=== PATIENT | female | born 1980 | race Caucasian/White ===

== ENCOUNTER 2016-10-11 16:47 | Emergency (ER) | payer OTHER ==
[~2016-10-11] VITALS: Ht 162.6 cm; Wt 113.4 kg
[2016-10-11 16:55] VITALS: BP 139/84; PULSE 96; RESP 14; TEMP 97.9; O2SAT 97
[2016-10-11 18:02] VITALS: BP 132/72; PULSE 76; RESP 16; TEMP 98.1; O2SAT 98
== END 2016-10-11 18:02 | disposition home or self-care (01) ==
LOC: SED 16:47
DX: L25.9 Unspecified contact dermatitis, unspecified cause (principal); L03.114 Cellulitis of left upper limb; Z88.5 Allergy status to narcotic agent; Z88.1 Allergy status to other antibiotic agents
CPT/HCPCS: 99283

== ENCOUNTER 2017-03-26 21:14 | Emergency (ER) | payer OTHER ==
[~2017-03-26] VITALS: Ht 162.6 cm; Wt 113.4 kg
[2017-03-26 21:19] VITALS: BP_SYST 143
[2017-03-26] MEDS ORDERED: LIDOCAINE/EPI 1% 1:100000 20 ML VIAL INJ ONE (21:45)
[2017-03-26 22:15] VITALS: BP_SYST 143
== END 2017-03-26 22:15 | disposition home or self-care (01) ==
LOC: SED 21:14
DX: S00.252A Superficial foreign body of left eyelid and periocular area, initial encounter (principal); S00.251A Superficial foreign body of right eyelid and periocular area, initial encounter; L08.9 Local infection of the skin and subcutaneous tissue, unspecified; Z88.5 Allergy status to narcotic agent; Z88.1 Allergy status to other antibiotic agents; X58.XXXA Exposure to other specified factors, initial encounter; Y93.89 Activity, other specified; Y92.89 Other specified places as the place of occurrence of the external cause; Y99.8 Other external cause status
CPT/HCPCS: 99284

== ENCOUNTER 2017-08-31 02:01 | Emergency (ER) | payer MEDICAID, OTHER ==
[~2017-08-31] VITALS: Ht 162.6 cm; Wt 115.7 kg
[2017-08-31 02:03] VITALS: BP_SYST 127
[2017-08-31] MEDS ORDERED: NACL 0.9% 1,000 ML IV ONE (02:26)
[2017-08-31] MEDS ORDERED: KETOROLAC TROMETHAMINE 30 MG VIAL IVP ONE (02:30)
[2017-08-31] MEDS ORDERED: ONDANSETRON HCL 4 MG/2 ML VIAL IVP ONE (02:30)
[2017-08-31 02:45] LABS: BILIRUBIN,URINE NEGATIVE (NEGATIVE); BLOOD, URINE NEGATIVE (NEGATIVE); CLARITY/URINE CLEAR (CLEAR); COLOR,URINE YELLOW (YELLOW); GLUCOSE,URINE 3+ (NEGATIVE); KETONES,URINE NEGATIVE (NEGATIVE); LEUKOCYTE ESTERASE ,URINE NEGATIVE (NEGATIVE); NITRITE, URINE NEGATIVE (NEGATIVE); PH,URINE 5.5 (5.0-8.0); PROTEIN URINE NEGATIVE (NEGATIVE); UROBILINOGEN,URINE 0.2 (0.2-1.0)
[2017-08-31 02:46] LABS: HEMATOCRIT 45.4 % (36-48); HEMOGLOBIN 14.6 g/dL (12.0-16.0); MEAN CORPUSCULAR HEMOGLOBIN 28 pg (27-31); MEAN CORPUSCULAR HGB CONC 32 % (32-36); MEAN CORPUSCULAR VOLUME 86 fL (79.0-98.0); PLATELET COUNT (AUTO) 607 K/uL (130-430); RED BLOOD CELL COUNT(AUTO) 5.27 MIL/uL (4.2-6.2); RED CELL DISTRIBUTION WIDTH 12.8 % (9.0-15.0); WHITE BLOOD COUNT (AUTO) 14.2 K/uL (4.8-10.8)
[2017-08-31 02:57] LABS: CALCIUM 9.7 mg/dL (8.4-11.0); CREATININE 0.74 mg/dL (0.55-1.30); POTASSIUM 3.9 mmol/L (3.5-5.1)
[2017-08-31 02:58] LABS: BACTERIA,URINE RARE /HPF (None Seen); RBC,URINE 0-3 /HPF (0-3); WBC,URINE 0-3 /HPF (0-3)
[2017-08-31 03:03] LABS: ALBUMIN 3.8 g/dL (3.4-4.8); TOTAL BILIRUBIN 0.1 mg/dL (0.0-1.0)
[2017-08-31 03:21] LABS: BASOPHILS % (MANUAL) 0 % (0-2); EOSINOPHILS % (MANUAL) 2 % (0-7); LYMPHOCYTES % (MANUAL) 25 % (20-46); MONOCYTES % (MANUAL) 6 % (0-11)
[2017-08-31] MEDS ORDERED: PROCHLORPERAZINE EDISYLATE 10 MG/2 ML VIAL IVP ONE ×2 (03:30→05:00)
[2017-08-31] MEDS ORDERED: fentaNYL CITRATE/PF 100 MCG/2 ML AMP IVP ONE (03:45)
[2017-08-31] MEDS ORDERED: SERT-131 PO (05:05)
[2017-08-31] MEDS ORDERED: SIMV40TA2 PO (05:05)
[2017-08-31] MEDS ORDERED: NOR10 PO (05:05)
[2017-08-31] MEDS ORDERED: TRAZ-123 PO (05:05)
[2017-08-31] MEDS ORDERED: APIX5TAB PO (05:05)
[2017-08-31] MEDS ORDERED: METO25TA6 PO (05:05)
[2017-08-31] MEDS ORDERED: ASPI-1063 PO (05:05)
[2017-08-31] MEDS ORDERED: GLIP5TAB13 PO (05:05)
[2017-08-31] MEDS ORDERED: MONT10TA25 PO (05:05)
[2017-08-31] MEDS ORDERED: LOSA1TAB3 PO (05:05)
[2017-08-31] MEDS ORDERED: GABA800T PO (05:05)
[2017-08-31] MEDS ORDERED: BELLADONNA ALKALOIDS/PHENOBARB 5 ML UDC PO ONE (05:15)
[2017-08-31] MEDS ORDERED: MAG-AL HYDROX/SIMETH 30 ML UDC PO ONE (05:15)
[2017-08-31] MEDS ORDERED: LIDOCAINE VISCOUS 2%, 15 ML UDC MM ONE (05:15)
[2017-08-31] MEDS ORDERED: PANTOPRAZOLE SODIUM 40 MG/VIAL (PROTONIX) IVP ONE (05:15)
[2017-08-31 05:40] VITALS: BP_SYST 131
== END 2017-08-31 05:40 | disposition home or self-care (01) ==
LOC: SED 02:01
DX: R10.13 Epigastric pain (principal); R11.10 Vomiting, unspecified; Z88.5 Allergy status to narcotic agent; Z88.1 Allergy status to other antibiotic agents; Z79.899 Other long term (current) drug therapy; Z90.49 Acquired absence of other specified parts of digestive tract; Z85.07 Personal history of malignant neoplasm of pancreas
CPT/HCPCS: 36415; 71045; 74176; 80053; 81000; 83690; 85007; 85027; 96361; 96374; 96375; 96376; 99285; C9113; J0780; J1885; J2001; J2405; J3010

== ENCOUNTER 2018-05-06 23:43 | Emergency (ER) | payer OTHER ==
[~2018-05-06] VITALS: Ht 162.6 cm; Wt 108.9 kg
[~2018-05-06 23:43] MED LIST: APIX5TAB PO; ASPI-1153 PO; GABA800T PO; GLIP5TAB13 PO; LOSA1TAB3 PO; METO25TA6 PO; MONT10TA25 PO; NOR10 PO; SERT-131 PO; SIMV40TA2 PO; TRAZ-123 PO
[2018-05-07] VITALS: BP_SYST 127
--- NOTE | 2018-05-07 | NUR ---
PT AMBULATORY TO BED 8 FOR EVALUATION
--- NOTE | 2018-05-07 00:14 | NUR ---
Pt complains of pain to front tooth x 2 weeks. Pt states she had seen her dentist and was prescribed Amoxicillin x 7 days but pain is getting worse and infection is getting worse. Per patient, she took a [place] pill around 2129 with some relief. Pt denies fever, N/V. Noted bump to left front tooth. No other injuries/complaints per patient or noted.
--- NOTE | 2018-05-07 00:15 | NUR ---
ER Dr. Iqbal at bedside examining patient.
[2018-05-07] MEDS ORDERED: traMADol HCL HCL 50 MG TABLET (ULTRAM) PO ONE (00:30)
[2018-05-07] MEDS ORDERED: CLINDAMYCIN HCL 150 MG CAPSULE PO ONE (00:30)
--- NOTE | 2018-05-07 00:37 | NUR ---
Medication Clindamycin PO was given, pt tolerated well. No adverse reaction, will continue to monitor.
--- NOTE | 2018-05-07 00:41 | NUR ---
ER Dr. Iqbal at bedside explaining discharge summary to patient. Dr. Iqbal dispensed Tramadol 50mg PO to patient and instructed her to take medication when she gets home. Explained side effects. Pt verbalized understanding.
[2018-05-07 01:00] VITALS: BP_SYST 127
--- NOTE | 2018-05-07 01:00 | NUR ---
Patient given written and verbal discharge instructions and verbalizes understanding. ER MD discussed with patient the results and treatment provided. Patient in stable condition. ID arm band removed. Rx of Clindamycin given. Patient educated on pain management and to follow up with PMD. Pain Scale 3. Dr. Iqbal aware, medication sent home with patient. Opportunity for questions provided and answered. Medication side effect fact sheet provided.
== END 2018-05-07 01:00 | disposition home or self-care (01) ==
LOC: SED 23:43
DX: K04.7 Periapical abscess without sinus (principal); E11.9 Type 2 diabetes mellitus without complications; I10 Essential (primary) hypertension; Z88.1 Allergy status to other antibiotic agents; Z88.6 Allergy status to analgesic agent; Z79.82 Long term (current) use of aspirin; Z79.899 Other long term (current) drug therapy
CPT/HCPCS: 99283

== ENCOUNTER 2018-06-24 05:18 | Inpatient (IN) | payer OTHER ==
[~2018-06-24] VITALS: Ht 162.6 cm; Wt 113.2 kg
[2018-06-24] VITALS (7 sets, daily range): BP systolic 102–126
[~2018-06-24 05:18] MED LIST changes: -TRAZ-123 PO; +TRAZ-218 PO
[2018-06-24] MEDS ORDERED: NACL 0.9% 1,000 ML IV ONE ×2 (05:37→07:30)
[2018-06-24] MEDS ORDERED: fentaNYL CITRATE/PF 100 MCG/2 ML AMP IVP ONE (05:45)
[2018-06-24] MEDS ORDERED: ONDANSETRON HCL 4 MG/2 ML VIAL IVP ONE (05:45)
[2018-06-24 06:49] LABS: HEMATOCRIT 43.6 % (36-48); HEMOGLOBIN 14.4 g/dL (12.0-16.0); MEAN CORPUSCULAR HEMOGLOBIN 28 pg (27-31); MEAN CORPUSCULAR HGB CONC 33 % (32-36); MEAN CORPUSCULAR VOLUME 86 fL (79.0-98.0); PLATELET COUNT (AUTO) 657 K/uL (130-430); RED BLOOD CELL COUNT(AUTO) 5.09 MIL/uL (4.2-6.2); RED CELL DISTRIBUTION WIDTH 13.8 % (9.0-15.0); WHITE BLOOD COUNT (AUTO) 11.8 K/uL (4.8-10.8)
[2018-06-24 07:06] LABS: INR 0.9 (0.8-1.2); PROTHROMBIN TIME 9.5 SECS (9.5-12.5)
[2018-06-24 07:12] LABS: BASOPHILS % (MANUAL) 0 % (0-2); EOSINOPHILS % (MANUAL) 5 % (0-7); LYMPHOCYTES % (MANUAL) 33 % (20-46); MONOCYTES % (MANUAL) 4 % (0-11)
[2018-06-24] MEDS ORDERED: DIPHENHYDRAMINE INJ 50 MG/ML VIAL IVP ONE (07:15)
[2018-06-24 07:18] LABS: CALCIUM 9.4 mg/dL (8.4-11.0); CREATININE 1.01 mg/dL (0.55-1.30); POTASSIUM 4.2 mmol/L (3.5-5.1)
[2018-06-24 07:19] LABS: ALBUMIN 3.9 g/dL (3.4-4.8); TOTAL BILIRUBIN 0.4 mg/dL (0.0-1.0)
[2018-06-24] MEDS ORDERED: GLIP10TA11 PO (07:24)
[2018-06-24] MEDS ORDERED: GABA800T PO (07:24)
[2018-06-24] MEDS ORDERED: metroNIDAZOLE 500 mg/NS 100 ML IV ONE (07:30)
[2018-06-24] MEDS ORDERED: PIPERACILLIN/TAZO 3.375 GM in NS 50 ML IV ONE ×2 (07:30)
[2018-06-24] MEDS ORDERED: D5NS 1,000 ML IV SCH (07:30)
[2018-06-24] MEDS ORDERED: PIPERACILLIN/TAZOBACTAM 3.375 GM/VIAL (ZOSYN) IV ONE (07:36)
[2018-06-24] MEDS ORDERED: MORPHINE 4 MG/ML INJ. SYRINGE IVP ONE (08:30)
[2018-06-24] MEDS ORDERED: traZODone HCL 50 MG TABLET (DESYREL) PO PRN (09:00)
[2018-06-24] MEDS ORDERED: LOSARTAN/HYDROCHLOROTHIAZIDE TAB (HYZAAR 50-12.5 MG) PO SCH (09:00)
[2018-06-24] MEDS ORDERED: APIX5TAB PO (09:18)
[2018-06-24] MEDS ORDERED: FENO160 PO (09:18)
[2018-06-24] MEDS ORDERED: CANA300T PO (09:18)
[2018-06-24] MEDS: LACTOBACILLUS RHAMNOSUS GG 1 CAP CAPSULE PO SCH (09:28)
[2018-06-24] MEDS ORDERED: INSULIN ASPART 100 UNITS/ML, 10 ML VIAL (NovoLOG) SUBCUT PRN (09:30)
[2018-06-24] MEDS ORDERED: ALBUTEROL SULFATE 0.083% 2.5 MG/3 ML VIAL.NEB INH PRN (09:30)
[2018-06-24] MEDS ORDERED: MAGNESIUM OXIDE 400 MG TABLET PO PRN (09:30)
[2018-06-24] MEDS ORDERED: POTASSIUM CHLORIDE 20 MEQ TAB.PRT.SR PO PRN (09:30)
[2018-06-24] MEDS ORDERED: GLUCOSE 15 GM GEL (in 37.5 GM TUBE) PO PRN (09:30)
[2018-06-24] MEDS ORDERED: ACETAMINOPHEN 325 MG TABLET PO PRN (09:30)
[2018-06-24] MEDS: NACL 0.9% 1,000 ML IV SCH ×2 (10:25→20:48)
[2018-06-24] MEDS ORDERED: HYDROCHLOROTHIAZIDE 12.5 MG CAPSULE (HCTZ) PO ONE (10:30)
[2018-06-24] MEDS ORDERED: LOSARTAN POTASSIUM 50 MG TABLET (COZAAR) PO ONE (10:30)
[2018-06-24] MEDS: GABAPENTIN 400 MG CAPSULE PO SCH ×2 (10:32→20:48)
[2018-06-24] MEDS: SERTRALINE HCL 50 MG TABLET PO SCH (10:32)
[2018-06-24] MEDS: METOPROLOL TARTRATE 25 MG TABLET PO SCH ×2 (10:33→20:46)
[2018-06-24] MEDS: amLODIPine BESYLATE 10 MG TABLET PO SCH (10:33)
[2018-06-24] MEDS: SIMVASTATIN 40 MG TABLET PO SCH (10:33)
[2018-06-24] MEDS: PIPERACILLIN/TAZOBACTAM 3.375 GM/ D5W 50 ML IV SCH ×6 (12:06→23:47)
[2018-06-24] MEDS ORDERED: HYDROcodone/ACETAMIN 5-325 MG TAB (NORCO/ VICODIN) PO PRN (13:45)
[2018-06-24] MEDS ORDERED: MORPHINE 4 MG/ML INJ. SYRINGE IVP PRN (13:45)
[2018-06-24] MEDS ORDERED: DOCUSATE SODIUM 100 MG CAPSULE PO PRN (13:45)
[2018-06-24] MEDS ORDERED: MUPIROCIN 2% TOPICAL OINTMENT 22 GM NS PRN (13:45)
[2018-06-24 13:48] LABS: BILIRUBIN,URINE NEGATIVE (NEGATIVE); CLARITY/URINE CLEAR (CLEAR); COLOR,URINE YELLOW (YELLOW); GLUCOSE,URINE 3+ (NEGATIVE); KETONES,URINE NEGATIVE (NEGATIVE); LEUKOCYTE ESTERASE ,URINE NEGATIVE (NEGATIVE); NITRITE, URINE NEGATIVE (NEGATIVE); PH,URINE 5.5 (5.0-8.0); PROTEIN URINE NEGATIVE (NEGATIVE); UROBILINOGEN,URINE 0.2 (0.2-1.0)
[2018-06-24 13:52] LABS: BLOOD, URINE TRACE (NEGATIVE)
[2018-06-24 13:58] LABS: BACTERIA,URINE RARE /HPF (None Seen); RBC,URINE 0-3 /HPF (0-3); WBC,URINE 0-3 /HPF (0-3)
[2018-06-24 13:59] LABS: MUCUS,URINE 1+ /LPF (None Seen)
[2018-06-24 14:25] LABS: BENZODIAZEPINE, URINE NEGATIVE (NEG <=150); COCAINE, URINE NEGATIVE (NEG <=150); METHAMPHETAMINES SCREEN,URINE NEGATIVE (NEG <=500); URINE AMPHETAMINE NEGATIVE (NEG <=500); URINE METHADONE NEGATIVE (NEG <=200)
[2018-06-24 14:26] LABS: BARBITURATE, URINE POSITIVE (NEG <=200); CANNABINOID, URINE NEGATIVE (NEG <=50); OPIATE, URINE POSITIVE (NEG <=100); PHENCYCLIDINE SCREEN,URINE NEGATIVE (NEG <=25); UR TRICYCLIC ANTIDEPRESSANTS NEGATIVE (NEG <=300); URINE OXYCODONE SCREEN NEGATIVE (NEG <=100); URINE PROPOXYPHENE SCREEN NEGATIVE (NEG <=300)
[2018-06-24] MEDS: MONTELUKAST 10 MG TABLET PO SCH (17:39)
[2018-06-24] MEDS: ONDANSETRON HCL 4 MG/2 ML VIAL IVP PRN (19:19)
[2018-06-24] MEDS: MORPHINE 4 MG/ML INJ. SYRINGE IVP PRN (20:42)
[2018-06-24] MEDS: LOSARTAN POTASSIUM 50 MG TABLET (COZAAR) PO SCH (20:46)
[2018-06-24] MEDS: FENOFIBRATE 160 MG TABLET PO SCH (20:48)
[2018-06-24] MEDS: HYDROCHLOROTHIAZIDE 12.5 MG CAPSULE (HCTZ) PO SCH (21:00)
[2018-06-25] VITALS: BP_SYST 102
[2018-06-25] MEDS: NACL 0.9% 1,000 ML IV SCH ×3 (05:50→23:13)
[2018-06-25] MEDS: PIPERACILLIN/TAZOBACTAM 3.375 GM/ D5W 50 ML IV SCH ×8 (05:51→23:12)
[2018-06-25] MEDS: MORPHINE 4 MG/ML INJ. SYRINGE IVP PRN ×4 (05:57→21:37)
[2018-06-25 06:22] LABS: CALCIUM 8.9 mg/dL (8.4-11.0); CREATININE 0.95 mg/dL (0.55-1.30); POTASSIUM 4.5 mmol/L (3.5-5.1)
[2018-06-25 06:30] LABS: PHOSPHORUS 4.2 mg/dL (2.7-4.5)
[2018-06-25 08:00] VITALS: BP_SYST 117
[2018-06-25 08:11] LABS: EOSINOPHILS # (AUTO) 0.5 K/uL (0.0-0.4); MEAN CORPUSCULAR HEMOGLOBIN 28 pg (27-31)
[2018-06-25 08:47] LABS: EOSINOPHILS % (AUTO) 3.7 % (0.0-4.0); HEMATOCRIT 40.9 % (36-48); HEMOGLOBIN 13.5 g/dL (12.0-16.0); LYMPHOCYTES # (AUTO) 3.6 K/uL (1.0-5.5); MEAN CORPUSCULAR HGB CONC 33 % (32-36); MEAN CORPUSCULAR VOLUME 85 fL (79.0-98.0); MONOCYTES # (AUTO) 1.1 K/uL (0.0-1.0); PLATELET COUNT (AUTO) 616 K/uL (130-430); RED BLOOD CELL COUNT(AUTO) 4.81 MIL/uL (4.2-6.2); RED CELL DISTRIBUTION WIDTH 13.8 % (9.0-15.0); WHITE BLOOD COUNT (AUTO) 14.3 K/uL (4.8-10.8)
[2018-06-25 08:48] LABS: BASOPHILS # (AUTO) 0.1 K/uL (0.0-0.2); NEUTROPHILS % (AUTO) 62.3 % (40.0-70.0)
[2018-06-25] MEDS ORDERED: ENOXAPARIN SODIUM 30 MG/0.3 ML SYRINGE SUBCUT SCH (09:00)
[2018-06-25] MEDS: GABAPENTIN 400 MG CAPSULE PO SCH ×2 (09:15→21:48)
[2018-06-25] MEDS: LACTOBACILLUS RHAMNOSUS GG 1 CAP CAPSULE PO SCH (09:16)
[2018-06-25] MEDS: SERTRALINE HCL 50 MG TABLET PO SCH (09:16)
[2018-06-25] MEDS: LOSARTAN POTASSIUM 50 MG TABLET (COZAAR) PO SCH ×2 (09:17→21:49)
[2018-06-25] MEDS: HYDROCHLOROTHIAZIDE 12.5 MG CAPSULE (HCTZ) PO SCH ×2 (09:17→21:00)
[2018-06-25] MEDS: METOPROLOL TARTRATE 25 MG TABLET PO SCH ×2 (09:17→21:49)
[2018-06-25] MEDS: ONDANSETRON HCL 4 MG/2 ML VIAL IVP PRN (09:25)
[2018-06-25] MEDS: SIMVASTATIN 40 MG TABLET PO SCH (09:25)
[2018-06-25] MEDS: amLODIPine BESYLATE 10 MG TABLET PO SCH (09:26)
[2018-06-25] MEDS ORDERED: ASPIRIN 81 MG TABLET(ECOTRIN) PO ONE (09:45)
[2018-06-25] MEDS ORDERED: METOCLOPRAMIDE HCL 10 MG/2 ML VIAL IVP ONE (10:00)
[2018-06-25 11:32] VITALS: BP_SYST 130
[2018-06-25 15:58] VITALS: BP_SYST 103
[2018-06-25] MEDS: MONTELUKAST 10 MG TABLET PO SCH (17:28)
[2018-06-25 19:47] VITALS: BP_SYST 108
[2018-06-25] MEDS ORDERED: APIXABAN 2.5 MG TABLET PO SCH (21:00)
[2018-06-25] MEDS: METOCLOPRAMIDE HCL 10 MG/2 ML VIAL IVP SCH (21:38)
[2018-06-25] MEDS: FENOFIBRATE 160 MG TABLET PO SCH (21:49)
[2018-06-25] MEDS ORDERED: DIPHENHYDRAMINE HCL 25 MG CAPSULE PO PRN (22:15)
[2018-06-26] MEDS: MORPHINE 4 MG/ML INJ. SYRINGE IVP PRN ×2 (04:11→09:24)
[2018-06-26] MEDS: METOCLOPRAMIDE HCL 10 MG/2 ML VIAL IVP SCH (06:42)
[2018-06-26] MEDS: PIPERACILLIN/TAZOBACTAM 3.375 GM/ D5W 50 ML IV SCH ×2 (06:42)
[2018-06-26 06:48] LABS: BASOPHILS # (AUTO) 0.3 K/uL (0.0-0.2); EOSINOPHILS # (AUTO) 0.5 K/uL (0.0-0.4); EOSINOPHILS % (AUTO) 4.5 % (0.0-4.0); HEMATOCRIT 39.6 % (36-48); HEMOGLOBIN 12.8 g/dL (12.0-16.0); LYMPHOCYTES # (AUTO) 2.9 K/uL (1.0-5.5); LYMPHOCYTES % (AUTO) 27.8 % (20.5-51.5); MEAN CORPUSCULAR HEMOGLOBIN 28 pg (27-31); MEAN CORPUSCULAR HGB CONC 32 % (32-36); MEAN CORPUSCULAR VOLUME 86 fL (79.0-98.0); MONOCYTES # (AUTO) 0.6 K/uL (0.0-1.0); MONOCYTES % (AUTO) 6.1 % (1.7-9.3); NEUTROPHILS # (AUTO) 6.3 K/uL (1.8-7.7); NEUTROPHILS % (AUTO) 58.6 % (40.0-70.0); PLATELET COUNT (AUTO) 634 K/uL (130-430); RED BLOOD CELL COUNT(AUTO) 4.59 MIL/uL (4.2-6.2); RED CELL DISTRIBUTION WIDTH 13.9 % (9.0-15.0)
[2018-06-26 06:57] LABS: CALCIUM 8.4 mg/dL (8.4-11.0); CREATININE 0.88 mg/dL (0.55-1.30)
[2018-06-26 06:59] LABS: WHITE BLOOD COUNT (AUTO) 10.6 K/uL (4.8-10.8)
[2018-06-26 07:08] LABS: PHOSPHORUS 3.7 mg/dL (2.7-4.5)
[2018-06-26 07:30] VITALS: BP_SYST 105
[2018-06-26] MEDS: GABAPENTIN 400 MG CAPSULE PO SCH (08:28)
[2018-06-26] MEDS: METOPROLOL TARTRATE 25 MG TABLET PO SCH (08:29)
[2018-06-26] MEDS: LACTOBACILLUS RHAMNOSUS GG 1 CAP CAPSULE PO SCH (08:29)
[2018-06-26] MEDS: SIMVASTATIN 40 MG TABLET PO SCH (08:29)
[2018-06-26] MEDS: SERTRALINE HCL 50 MG TABLET PO SCH (08:29)
[2018-06-26] MEDS: LOSARTAN POTASSIUM 50 MG TABLET (COZAAR) PO SCH (08:31)
[2018-06-26] MEDS: HYDROCHLOROTHIAZIDE 12.5 MG CAPSULE (HCTZ) PO SCH (08:31)
[2018-06-26] MEDS ORDERED: ASPIRIN 81 MG TABLET(ECOTRIN) PO SCH (09:00)
[2018-06-26] MEDS: amLODIPine BESYLATE 10 MG TABLET PO SCH (09:22)
[2018-06-26] MEDS ORDERED: LEVO250T2 PO (09:25)
[2018-06-26] MEDS ORDERED: HYDR-4272 PO (09:25)
[2018-06-26 10:14] VITALS: BP_SYST 104
== END 2018-06-26 10:55 | disposition home or self-care (01) | DRG 251 ==
LOC: SED 05:18 → SMU 07:15
PROVIDERS: ADMIT Family Medicine; ATTEND Family Medicine
DX: R10.32 Left lower quadrant pain (principal); R65.11 Systemic inflammatory response syndrome (SIRS) of non-infectious origin with acute organ dysfunction; E11.40 Type 2 diabetes mellitus with diabetic neuropathy, unspecified; E66.01 Morbid (severe) obesity due to excess calories; J45.909 Unspecified asthma, uncomplicated; R79.89 Other specified abnormal findings of blood chemistry; I10 Essential (primary) hypertension; R59.0 Localized enlarged lymph nodes; E11.65 Type 2 diabetes mellitus with hyperglycemia; E78.5 Hyperlipidemia, unspecified; F32.9 Major depressive disorder, single episode, unspecified; G47.00 Insomnia, unspecified; Z86.711 Personal history of pulmonary embolism; Z90.49 Acquired absence of other specified parts of digestive tract; Z90.81 Acquired absence of spleen; Z68.41 Body mass index [BMI] 40.0-44.9, adult; Z88.5 Allergy status to narcotic agent; Z88.1 Allergy status to other antibiotic agents; Z79.899 Other long term (current) drug therapy; Z79.82 Long term (current) use of aspirin; Z71.3 Dietary counseling and surveillance; Z87.891 Personal history of nicotine dependence
CPT/HCPCS: 36415; 71045; 76700-TC; 80048; 80053; 80307; 81000-TC; 82150-TC; 82550-TC; 82962; 83036; 83605; 83690-TC; 83735-TC; 84100-TC; 84484; 85007; 85025; 85027; 85610-TC; 85730-TC; 87040-TC; 87081; 96361; 96367; 96375; 99285; J1200; J1650; J1815; J2270; J2405; J2543; J2765; J3010; J3490; J7030; J7042; J7060; Q0163

== ENCOUNTER 2019-02-03 05:14 | Emergency (ER) | payer OTHER ==
[~2019-02-03] VITALS: Ht 162.6 cm; Wt 108.0 kg
[~2019-02-03 05:14] MED LIST changes: +CANA300T PO; +FENO160 PO; +GLIP10TA11 PO; -GLIP5TAB13 PO; +HYDR-4272 PO; +LEVO250T2 PO
[2019-02-03 05:25] VITALS: BP_SYST 131
[2019-02-03] MEDS ORDERED: PENICILLIN V POTASSIUM 250 MG TABLET PO ONE (05:45)
[2019-02-03] MEDS ORDERED: ACETAMINOPHEN 325 MG TABLET PO ONE (05:45)
[2019-02-03] MEDS ORDERED: AMOXICILLIN 500 MG CAPSULE PO ONE (06:00)
[2019-02-03] MEDS ORDERED: AMOXICILLIN 500 MG CAPSULE ONE (06:07)
[2019-02-03 06:25] VITALS: BP_SYST 124
== END 2019-02-03 06:25 | disposition home or self-care (01) ==
LOC: SED 05:14
DX: S02.5XXA Fracture of tooth (traumatic), initial encounter for closed fracture (principal); E11.9 Type 2 diabetes mellitus without complications; I10 Essential (primary) hypertension; Z88.1 Allergy status to other antibiotic agents; Z79.82 Long term (current) use of aspirin; Z79.899 Other long term (current) drug therapy; X58.XXXA Exposure to other specified factors, initial encounter; Y93.89 Activity, other specified; Y92.89 Other specified places as the place of occurrence of the external cause; Y99.8 Other external cause status
CPT/HCPCS: 99283